=== PATIENT | male | born 1970 | race Caucasian/White ===

== ENCOUNTER 2016-06-25 07:38 | Observation (INO) | payer BC ==
[2016-06-25] MEDS ORDERED: TRANEXAMIC ACID 3,000 MG in NS 50 ML IRR ONE (10:30)
[2016-06-25] MEDS ORDERED: ACETAMINOPHEN 325 MG TAB PO ONE (10:30)
[2016-06-25] MEDS ORDERED: FAMOTIDINE 20 MG TAB PO ONE (10:30)
[2016-06-25] MEDS ORDERED: CEFAZOLIN 2 GM/DEXTR 100 ML IV ONE (10:30)
[2016-06-25] MEDS ORDERED: DEXAMETHASONE 4 MG/ML VIAL IVP ONE (10:30)
[2016-06-25] MEDS ORDERED: CHLORHEXIDINE GLUC HIBICLENS 118 ML BTL TP ONE (10:30)
[2016-06-25] MEDS ORDERED: ROPI/epiNEPH/KETOROLAC JOINT COCKTAIL IU ONE (10:30)
[2016-06-25] MEDS ORDERED: SKIN ADHESIVE (DERMABOND) 1 EACH TP ONE (11:43)
[2016-06-25] MEDS ORDERED: VANCOMYCIN 1 GM VIAL IV ONE (11:43)
[2016-06-25] MEDS ORDERED: LIDOCAINE 1% 5 ML SDV ID PRN (11:50)
[2016-06-25] MEDS ORDERED: LR 1,000 ML IV ONE (11:50)
[2016-06-25] MEDS ORDERED: DEXAMETHASONE 4 MG/ML VIAL ONE (11:56)
[2016-06-25] MEDS ORDERED: FAMOTIDINE 20 MG TAB ONE (11:56)
[2016-06-25] MEDS ORDERED: CEFAZOLIN 2 GM/DEXTROSE/100 ML BAG IV ONE (11:57)
[2016-06-25] MEDS ORDERED: ACETAMINOPHEN 325 MG TAB ONE (11:57)
[2016-06-25] MEDS ORDERED: PROPOFOL/EMULSION 500 MG/50 ML BOTTLE IV ONE (13:03)
[2016-06-25] MEDS ORDERED: MIDAZOLAM 2 MG/2 ML VIAL ONE (13:16)
[2016-06-25] MEDS ORDERED: POLYETHYLENE GLYCOL 3350 17 GM PKT PO PRN (13:42)
[2016-06-25] MEDS ORDERED: ONDANSETRON 4 MG/2 ML VIAL IVP PRN (13:42)
[2016-06-25] MEDS ORDERED: PROMETHAZINE HCL 25 MG SUPPR PR PRN (13:42)
[2016-06-25] MEDS ORDERED: PHARMACY PAIN CONSULT 1 EA MISC PRN (13:42)
[2016-06-25] MEDS ORDERED: BISACODYL 10 MG SUPP PR PRN (13:42)
[2016-06-25] MEDS ORDERED: diphenhydrAMINE 25 MG CAP PO PRN (13:42)
[2016-06-25] MEDS ORDERED: LACTULOSE 20 GM/30 ML UDCUP PO PRN (13:42)
[2016-06-25] MEDS ORDERED: ONDANSETRON DISINTEGRATING 4 MG TAB PO PRN (13:42)
[2016-06-25] MEDS ORDERED: TEMAZEPAM 15 MG CAP PO PRN (13:42)
[2016-06-25] MEDS ORDERED: DIPHENOXYLATE/ATROPINE LOMOTIL 1 TAB PO PRN (13:42)
[2016-06-25] MEDS ORDERED: METOCLOPRAMIDE 10 MG/2 ML VIAL IVP PRN (13:42)
[2016-06-25] MEDS ORDERED: MAGNESIUM HYDROXIDE 30 ML UDCUP PO PRN (13:42)
[2016-06-25] MEDS ORDERED: LR 1,000 ML IV SCH (14:00)
[2016-06-25] MEDS ORDERED: oxyCODONE IR 5 MG TAB ONE (16:01)
--- NOTE | 2016-06-25 16:38 | GOP ---
[f rep st] OPERATIVE REPORT DATE OF OPERATION: 06/25/2016 SURGEON: Nik Ambrose MD SALES ORDER ADMINISTRATOR: Olga Ambrose PA-C. ANESTHESIA: Spinal. PREOPERATIVE DIAGNOSIS: Right knee osteoarthritis. POSTOPERATIVE DIAGNOSIS: Right knee osteoarthritis. PROCEDURE PERFORMED: Right medial compartment partial knee replacement and computer navigation and robotic assistance. FINDINGS: ESTIMATED BLOOD LOSS: 130 mL. INDICATIONS: This is a 45-year-old male with progressive pain of the right knee unresponsive to con servative care. Risks and benefits of surgical intervention were explained in detail. DESCRIPTION OF PROCEDURE: The patient was brought to the operating room and placed on the table in supine position. Spinal anesthesia was induced without difficulty. A pneumatic tourniquet was appl ied about the right proximal thigh and the leg was prepped and draped in sterile fashion. Attention was turned first to the distal aspect of the right femur. At 3 cm proximal to the lateral rise of the femur, 2 percutaneous half pins were placed for fixation of the femoral array. In a similar fas hion, 2 pins were placed anterolateral on the tibia for fixation of the tibial array. External land marking and registration of the hip center was performed without difficulty. After exsanguination by elevation, the tourniquet was inflated to 275 mmHg. Incision was made from the tibial tuberosity to the superior pole of the patella. Dissection was ca rried out through the subcutaneous tissue to the deep fascia using Bovie electrocautery for hemostas is. Medial parapatellar arthrotomy was carried out to the superior pole of the patella. The medial collateral ligament was elevated and the infrapatellar fat pad was resected. Internal femoral and tibial registration was carried out without difficulty and the femoral and tibial checkpoints were p laced and verified for accuracy. Attention was turned to the femur. The foot print for the size 5 femoral component was cut with the 6 mm bur using the [employer] robotic system and verified for accuracy against the CT based plan. The hol e was cut for the femoral post. In a similar fashion, the 6 mm bur was used to cut the foot print fo r the size 5 tibial component using the [employer] system and verified for accuracy against the CT based pl an. Attention was turned to the posterior aspect of the knee and remnants of the medial meniscus were ex cised. The posterior capsule was injected with ropivacaine, epinephrine and Toradol. Trial reducti on was carried out and there was excellent range of motion, alignment and stability using the size 5 femoral component and the size 5 tibial component, 5 x 9 mm polyethylene. All trials were then removed. The joint was thoroughly irrigated and carefully dried. One package of cement and 1 gram of vancomycin were mixed in the vacuum mixer and placed on the fixation surface s of all components. The components were implanted and all excess cement was thoroughly removed. Im plant placement was verified against the CT view plan and found to be excellent. The tourniquet was deflated and all bleeders were coagulated. The wound was thoroughly irrigated an d closed using interrupted sutures of 2-0 Vicryl for the joint capsule. The subcu was closed with 3 -0 Vicryl and the skin with 4-0 Monocryl. Dermabond and Steri-Strips were applied, followed by a co mpressive dressing. The patient was then moved from the operating room to the recovery room in good condition, having tolerated the procedure well. PATHOLOGY: Severe medial compartment osteoarthritis. CASE CLASSIFICATION: Clean. /[id number]/MODL
--- NOTE | 2016-06-25 17:07 | POSTOPPROG ---
Post Op Note Date of Operation: 06/25/16 Surgeon: Froy Joseph Instrument Setter: jose joseph Anesthesiologist: dr. acuna Anesthesia: Spinal, Other (Specify) (adductor) Pre-op Diagnosis: R knee OA Post-op Diagnosis: same Indication: right knee pain due to OA that failed conservative measure Procedure: R medial partial knee arthroplasty Findings: severe medial knee OA Inf/Abcess present in the surg proc area at time of surgery?: No EBL: 50-100
[2016-06-25] MEDS: ACETAMINOPHEN 325 MG TAB PO SCH ×2 (18:35→23:21)
[2016-06-25] MEDS: SENNOSIDES/DOCUSATE SODIUM TAB PO SCH (20:45)
[2016-06-25] MEDS: FAMOTIDINE 20 MG TAB PO SCH (20:45)
[2016-06-25] MEDS: oxyCODONE IR 5 MG TAB PO PRN (20:46)
[2016-06-25] MEDS: CYCLOBENZAPRINE 10 MG TAB PO PRN (20:46)
[2016-06-25] MEDS: ceFAZolin 2 GM/DEXTROSE 100 ML IV SCH (20:47)
[2016-06-26] MEDS: oxyCODONE IR 5 MG TAB PO PRN ×6 (03:20→23:25)
[2016-06-26 04:49] LABS: HEMATOCRIT 40.5 % (40.0-51.0); HEMOGLOBIN 13.9 g/dL (13.7-17.5)
[2016-06-26] MEDS: ACETAMINOPHEN 325 MG TAB PO SCH ×4 (05:05→23:25)
[2016-06-26] MEDS: ceFAZolin 2 GM/DEXTROSE 100 ML IV SCH (05:06)
[2016-06-26] MEDS: RIVAROXABAN 10 MG TAB PO SCH (08:28)
[2016-06-26] MEDS: FAMOTIDINE 20 MG TAB PO SCH ×2 (08:28→20:14)
[2016-06-26] MEDS: SENNOSIDES/DOCUSATE SODIUM TAB PO SCH ×2 (08:28→20:14)
--- NOTE | 2016-06-26 09:52 | SOAPPROG ---
SOAP Progress Note Assessment/Plan: Assessment: is doing well POD 1 s/p R med mpl 1. Pain management: pain is well controlled on oral pain meds 2. Anemia: level is expected initially postop. Asymptomatic, continue to monitor 3. VTE prophylaxis: Recommend xarelto daily. Cont SCDs and TEDs 4. D/c planning: d/c to home tomorrow most likely pending release from PT. Plan: 06/26/16 09:52 Objective: Vital Signs Temp Pulse Resp BP Pulse Ox 36.4 C 46 L 14 128/88 H 94 06/26/16 07:52 06/26/16 07:52 06/26/16 07:52 06/26/16 07:52 06/26/16 07:52 Laboratory Results 06/26/16 04:23 06/25/16 06/26/16 06/27/16 05:59 05:59 05:59 Intake Total 2760 Output Total 980 350 Balance 1780 -350 ICD10 Worksheet Patient Problems: Problems Problem Status Onset Primary localized osteoarthritis of right knee Acute
[2016-06-26] MEDS: CYCLOBENZAPRINE 10 MG TAB PO PRN ×2 (11:11→19:16)
[2016-06-26 23:21] VITALS: TEMP 98.3
[2016-06-27] MEDS: oxyCODONE IR 5 MG TAB PO PRN ×3 (05:03→11:07)
[2016-06-27] MEDS: CYCLOBENZAPRINE 10 MG TAB PO PRN ×2 (05:03→11:08)
[2016-06-27] MEDS: ACETAMINOPHEN 325 MG TAB PO SCH ×2 (05:04→11:07)
[2016-06-27 05:19] LABS: HEMATOCRIT 38.4 % (40.0-51.0); HEMOGLOBIN 13.2 g/dL (13.7-17.5)
[2016-06-27] MEDS: SENNOSIDES/DOCUSATE SODIUM TAB PO SCH (07:54)
[2016-06-27] MEDS: FAMOTIDINE 20 MG TAB PO SCH (07:55)
[2016-06-27] MEDS: RIVAROXABAN 10 MG TAB PO SCH (07:56)
[2016-06-27 08:10] VITALS: BP 149/99; PULSE 60; RESP 14; O2SAT 98
== END 2016-06-27 12:22 | disposition home or self-care (01) ==
LOC: INTOOBSV 07:38 → F3N 07:38
PROVIDERS: ADMIT Orthopaedic Surgery; ATTEND Orthopaedic Surgery
PROC: 8E0YXCZ Robotic Assisted Procedure of Lower Extremity (ICD-10-PCS; principal; 2016-06-25 13:15)
PROC: 8E0YXBG Computer Assisted Procedure of Lower Extremity, With Computerized Tomography (ICD-10-PCS; principal; 2016-06-25 13:15)
PROC: 0SRC0L9 Replacement of Right Knee Joint with Medial Unicondylar Synthetic Substitute, Cemented, Open Approach (ICD-10-PCS; principal; 2016-06-25 13:15)
DX: M17.11 Unilateral primary osteoarthritis, right knee (principal); Z86.718 Personal history of other venous thrombosis and embolism
CPT/HCPCS: 27446; 73560; 97161; 97165; G0378; C1713; J0171; J0690; J1100; J1885; J2250; J2704; J2795; J3370

== ENCOUNTER → 2017-02-17 | Outpatient (CLI) | payer BC | LOC: FIMAGING 09:34 | PROVIDERS: ATTEND Orthopaedic Surgery | DX: Z01.818 Encounter for other preprocedural examination (principal); M17.12 Unilateral primary osteoarthritis, left knee; M25.462 Effusion, left knee; M23.42 Loose body in knee, left knee ==

== ENCOUNTER 2017-02-18 09:15 | Observation (INO) | payer BC ==
[~2017-02-18 09:15] MED LIST: ROPIVACAINE 0.2% 80 MG, EPINEPHrine 0.2 MG, KETOROLAC TROMETHAMINE 30 MG in SYRINGE 0 ML IU ONE; TRANEXAMIC ACID 3,000 MG in NS 50 ML IRR ONE
[2017-02-18] MEDS ORDERED: TRANEXAMIC ACID 3,000 MG/50 ML BAG IRR ONE (09:40)
[2017-02-18] MEDS ORDERED: VANCOMYCIN 1 GM VIAL ONE (09:41)
[2017-02-18] MEDS ORDERED: FAMOTIDINE 20 MG TAB PO ONE (10:57)
[2017-02-18] MEDS ORDERED: ceFAZolin 2 GM/SWFI 2 GM/20 ML SYR IVP ONE (10:57)
[2017-02-18] MEDS ORDERED: ACETAMINOPHEN 325 MG TAB PO ONE (10:57)
[2017-02-18] MEDS ORDERED: DEXAMETHASONE 4 MG/ML VIAL IVP ONE (10:57)
[2017-02-18] MEDS ORDERED: LIDOCAINE 1% 2 ML INJ ID PRN (10:58)
[2017-02-18] MEDS ORDERED: LR 1,000 ML IV ONE (10:58)
--- NOTE | 2017-02-18 11:43 | PDHPUP ---
History & Physical Update H&P update statement: This history and physical update is based on an assessment of the patient which was completed after admission or registration (within 24 hours), but prior to the surgery/procedure. H&P update: H&P reviewed & patient examined, no change in patient's condition since H&P completed
[2017-02-18] MEDS ORDERED: PROPOFOL/EMULSION 500 MG/50 ML BOTTLE IV ONE (12:09)
[2017-02-18] MEDS ORDERED: LIDOCAINE 2% 5 ML SDV ONE (12:11)
--- NOTE | 2017-02-18 12:26 | PDANEPAE ---
ANE Past Medical History - Cardiovascular History Hx Hypertension: No Hx Arrhythmias: No Hx Chest Pain: No Hx Coronary Artery / Peripheral Vascular Disease: No Hx CHF / Valvular Disease: No Hx Palpitations: No - Pulmonary History Hx COPD: No Hx Asthma/Reactive Airway Disease: No Hx Recent Upper Respiratory Infection: No Hx Oxygen in Use at Home: No Hx Sleep Apnea: No Sleep Apnea Screening Result - Last Documented: Negative - Neurologic History Hx Cerebrovascular Accident: No Hx Seizures: No Hx Dementia: No - Endocrine History Hx Diabetes: No Obesity: no - Renal History Hx Renal Disorders: No - Liver History Hx Hepatic Disorders: No - Neurological & Psychiatric Hx Hx Neurological and Psychiatric Disorders: No - Cancer History Hx Cancer: No - Congenital Disorder History Hx Congenital Disorders: No - GI History GERD: no Hx Gastrointestinal Disorders: No - Other Health History Other Health History: none - Chronic Pain History Chronic Pain: Yes (BILATERAL KNEES) - Surgical History Prior Surgeries: BILATERAL KNEE MENISCUS REPAIR MULTIPLE TIMES, MOST RECENT 2010. TONSILLECTOMY @ 35 Y. O. ANE Review of Systems Review of Systems: - Exercise capacity METS (RN): 5 METS ANE Patient History - Allergies Allergies/Adverse Reactions: iodine Allergy (Verified 05/19/16 08:27) Anaphylaxis - Home Medications Home medications: home medication list seen and reviewed Home Medications: Ibuprofen [Motrin (*)] 200 mg PO DAILY PRN 01/08/17 [Last Taken Unknown] - NPO status NPO Since - Liquids (Date): 02/18/17 NPO Since - Liquids (Time): 09:00 NPO Since - Solids (Date): 02/17/17 NPO Since - Solids (Time): 22:00 - Anes Hx Anes Hx: no prior problems - Smoking Hx Smoking Status: Former smoker - Family Anes Hx Family Hx Anesthesia Complications: none ANE Labs/Vital Signs - Vital Signs Blood Pressure: 137/97 Heart Rate: 46 Respiratory Rate: 18 O2 Sat (%): 95 Height: 175.26 cm Weight: 81.647 kg ANE Physical Exam - Airway Neck exam: FROM Mallampati Score: Class 1 Mouth exam: normal dental/mouth exam - Pulmonary Pulmonary: no respiratory distress - Cardiovascular Cardiovascular: regular rate and rhythym - ASA Status ASA Status: I ANE Anesthesia Plan Anesthesia Plan: spinal Regional Anesthesia: single shot NB, adductor canal FNB
[2017-02-18] MEDS ORDERED: MIDAZOLAM 2 MG/2 ML VIAL ONE (13:03)
[2017-02-18] MEDS ORDERED: MIDAZOLAM 2 MG/2 ML VIAL IVP ONE (13:10)
[2017-02-18] MEDS ORDERED: fentaNYL 100 MCG/2 ML INJ ONE (13:45)
[2017-02-18] MEDS ORDERED: POLYETHYLENE GLYCOL 3350 17 GM PKT PO PRN (13:48)
[2017-02-18] MEDS ORDERED: ONDANSETRON 4 MG/2 ML VIAL IVP PRN ×2 (13:48→14:11)
[2017-02-18] MEDS ORDERED: DIPHENOXYLATE/ATROPINE LOMOTIL 1 TAB PO PRN (13:48)
[2017-02-18] MEDS ORDERED: PROMETHAZINE HCL 25 MG SUPPR PR PRN (13:48)
[2017-02-18] MEDS ORDERED: BISACODYL 10 MG SUPP PR PRN (13:48)
[2017-02-18] MEDS ORDERED: ONDANSETRON DISINTEGRATING 4 MG TAB PO PRN (13:48)
[2017-02-18] MEDS ORDERED: LACTULOSE 20 GM/30 ML UDCUP PO PRN (13:48)
[2017-02-18] MEDS ORDERED: METOCLOPRAMIDE 10 MG/2 ML VIAL IVP PRN (13:48)
[2017-02-18] MEDS ORDERED: PROMETHAZINE HCL 25 MG/ML INJ IVP PRN ×2 (13:48→14:11)
[2017-02-18] MEDS ORDERED: TEMAZEPAM 15 MG CAP PO PRN (13:48)
[2017-02-18] MEDS ORDERED: CYCLOBENZAPRINE 10 MG TAB PO PRN (13:48)
[2017-02-18] MEDS ORDERED: diphenhydrAMINE 25 MG CAP PO PRN (13:48)
[2017-02-18] MEDS ORDERED: MAGNESIUM HYDROXIDE 30 ML UDCUP PO PRN (13:48)
[2017-02-18] MEDS ORDERED: ONDANSETRON 4 MG/2 ML VIAL ONE (13:51)
[2017-02-18] MEDS ORDERED: LR 1,000 ML IV SCH (14:00)
[2017-02-18] MEDS ORDERED: DEXAMETHASONE 4 MG/ML VIAL ONE (14:09)
[2017-02-18] MEDS ORDERED: ALBUTEROL 3 ML DEYVIAL IH PRN (14:11)
[2017-02-18] MEDS ORDERED: HYDROCODONE/APAP 5/325 TAB PO PRN (14:11)
[2017-02-18] MEDS ORDERED: HYDROmorphONE/DILAUDID 1 MG/ML INJ IVP PRN (14:11)
[2017-02-18] MEDS ORDERED: LR 500 ML IV PRN (14:11)
[2017-02-18] MEDS ORDERED: OXYCODONE/APAP 5/325 TAB PO PRN (14:11)
[2017-02-18] MEDS ORDERED: NALOXONE HCL 0.4 MG/ML INJ IVP PRN (14:11)
[2017-02-18] MEDS ORDERED: ACETAMINOPHEN 500 MG TAB PO PRN (14:11)
[2017-02-18] MEDS ORDERED: fentaNYL 100 MCG/2 ML INJ IVP PRN (14:11)
--- NOTE | 2017-02-18 14:45 | POSTOPPROG ---
Post Op Note Date of Operation: 02/18/17 Surgeon: Froy Ambrose Wax Bleacher: Olga Ambrose PAc Anesthesia: Spinal Pre-op Diagnosis: L knee DJD Post-op Diagnosis: same Indication: pain Procedure: L med partial with robotic assist Findings: djd knee Inf/Abcess present in the surg proc area at time of surgery?: No EBL: 50-100
--- NOTE | 2017-02-18 14:53 | POSTANESTH ---
Post Anesthetic Evaluation Cardiovascular Status: Normal, Stable Respiratory Status: Normal, Stable Level of Consciousness/Mental Status: Can Participate in Eval Pain Control: Adequate, Prn Tx Ordered Nausea/Vomiting Control: Adequate, Prn Tx Ordered Complications Possibly Related to Anesthesia: None Noted
[2017-02-18] MEDS: oxyCODONE IR 5 MG TAB PO PRN ×3 (16:03→22:31)
[2017-02-18] MEDS: ACETAMINOPHEN 325 MG TAB PO SCH (17:59)
[2017-02-18] MEDS: ASPIRIN EC 81 MG TAB PO SCH (20:10)
[2017-02-18] MEDS: ceFAZolin 2 GM/DEXTROSE 100 ML IV SCH (20:10)
[2017-02-18] MEDS: FAMOTIDINE 20 MG TAB PO SCH (20:10)
[2017-02-18] MEDS: SENNOSIDES/DOCUSATE SODIUM TAB PO SCH (20:10)
[2017-02-19] MEDS: ACETAMINOPHEN 325 MG TAB PO SCH ×2 (00:04→05:04)
[2017-02-19] MEDS: oxyCODONE IR 5 MG TAB PO PRN ×2 (05:04→10:01)
[2017-02-19] MEDS: ceFAZolin 2 GM/DEXTROSE 100 ML IV SCH (05:04)
[2017-02-19 05:22] LABS: HEMATOCRIT 41.8 % (40.0-51.0); HEMOGLOBIN 14.8 g/dL (13.7-17.5)
--- NOTE | 2017-02-19 06:19 | GOP ---
[f rep st] OPERATIVE REPORT DATE OF OPERATION: 02/18/2017 SURGEON: Nik Ambrose MD VERIFYING MACHINE OPERATOR: Olga Ambrose PA-C. ANESTHESIA: Spinal. PREOPERATIVE DIAGNOSIS: Left knee osteoarthritis. POSTOPERATIVE DIAGNOSIS: Left knee osteoarthritis. PROCEDURE PERFORMED: Left medial compartment partial knee replacement with computer navigation and robotic assist. FINDINGS/PATHOLOGY: Severe medial compartment osteoarthritis. INDICATIONS: This is a 46 year old male with progressive pain of the left knee unresponsive to conservative care. Risks and benefits of surgical intervention were explained in detail. DESCRIPTION OF PROCEDURE: The patient was brought to the operating room and placed on the table in supine position. Spinal anesthesia was induced without difficulty. A pneumatic tourniquet was applied about the left proximal thigh and the leg was prepped and draped in sterile fashion. Attention was turned first to the distal aspect of the left femur. At 3 cm proximal to the lateral rise of the femur, 2 percutaneous half pins were placed for fixation of the femoral array. In a similar fashion, 2 pins were placed anterolateral on the tibia for fixation of the tibial array. External land marking and registration of the hip center was performed without difficulty. After exsanguination by elevation, the tourniquet was inflated to 250 mmHg. Incision was made from the tibial tuberosity to the superior pole of the patella. Dissection was carried out through the subcutaneous tissue to the deep fascia using Bov[employer] electrocautery for hemostasis. Medial parapatellar arthrotomy was carried out to the superior pole of the patella. The medial collateral ligament was elevated and the infrapatellar fat pad was resected. Internal femoral and tibial registration was carried out without difficulty and the femoral and tibial checkpoints were placed and verified for accuracy. Attention was turned to the femur. The foot print for the size 5 femoral component was cut with the 6 mm bur using the [employer] robotic system and verified for accuracy against the CT based plan. The hole was cut for the femoral post. In a similar fashion, the 6 mm bur was used to cut the foot print for the size 5 tibial component using the [employer] system and verified for accuracy against the CT based plan. Attention was turned to the posterior aspect of the knee and remnants of the medial meniscus were excised. The posterior capsule was injected with ropivacaine, epinephrine and Toradol. Trial reduction was carried out and there was excellent range of motion, alignment and stability using the size 5 femoral component and the size 5 tibial component, 5 x 8 mm polyethylene. All trials were then removed. The joint was thoroughly irrigated and carefully dried. One package of cement and 1 gram of vancomycin were mixed in the vacuum mixer and placed on the fixation surfaces of all components. The components were implanted and all excess cement was thoroughly removed. Implant placement was verified against the CT view plan and found to be excellent. The tourniquet was deflated and all bleeders were coagulated. The wound was thoroughly irrigated and closed using interrupted sutures of 2-0 Vicryl for the joint capsule. The subcu was closed with 3-0 Vicryl and the skin with 4-0 Monocryl. Dermabond and Steri-Strips were applied, followed by a compressive dressing. The patient was then moved from the operating room to the recovery room in good condition, having tolerated the procedure well. CASE CLASSIFICATION: Clean. /[id number]/MODL MTDD
[2017-02-19 08:10] VITALS: BP 132/63; PULSE 55; RESP 16; TEMP 98.1
[2017-02-19] MEDS: ASPIRIN EC 81 MG TAB PO SCH (08:23)
[2017-02-19] MEDS: SENNOSIDES/DOCUSATE SODIUM TAB PO SCH (08:45)
[2017-02-19] MEDS: FAMOTIDINE 20 MG TAB PO SCH (08:46)
[2017-02-19] MEDS ORDERED: RIVAROXABAN 10 MG TAB PO SCH (09:00)
[2017-02-19 10:51] VITALS: O2SAT 92
--- NOTE | 2017-02-19 12:11 | ASDISCHSUM ---
Discharge Information Plan Status:Home with No Needs Medically Cleared to Leave: Discharge Date:02/19/2017 11:44 AM CM D/C Disposition:Home, Routine, Self-Care ADT D/C Disposition:Home, Routine, Self-Care Projected Discharge Date:02/19/2017 11:44 AM Transportation at D/C: Discharge Delay Reason: Follow-Up Date:02/19/2017 11:44 AM Discharge Slot: Final Diagnosis: Placement Information Patient Contact Information Contact Name:WILBUR Relationship: Address:[address] Work Phone: City:[place] Phone: [facility] [address]/Zip Code:[place] [address] Email: Financial Information Financial Class:HMO and PPO Plans Primary Plan Desc: OUT OF STATE PPO Primary Plan Number:[id number] Secondary Plan Desc: Secondary Plan Number: Assessment Information Intervention Information Intervention Type:*Incorrect Registration Date of Service:02/18/2017 01:54 PM Patient Type:Inpatient Staff Member:CAMILLA Burgos, Olena Hours: Discipline: Severity: Comment:
--- NOTE | 2017-02-19 20:27 | SOAPPROG ---
SOAP Progress Note Assessment/Plan: Assessment: Jez is doing well s/p L med MPL 1) pain management: pain is well controlled on oral pain meds.. c/o right arm pain 2) VTE ppx: continue xarelto 3) d/c to home once PT releases patient Plan: 02/19/17 20:24 Subjective: Jez is doing well this morning, denies SOB, chest pain and n/v. Objective: Vital Signs Temp Pulse Resp BP Pulse Ox 36.7 C 55 L 16 132/63 H 92 02/19/17 08:00 02/19/17 08:00 02/19/17 08:00 02/19/17 08:00 02/19/17 10:18 Laboratory Results 02/19/17 05:05 02/18/17 02/19/17 02/20/17 05:59 05:59 05:59 Intake Total 1815 Output Total 880 Balance 935 LLE: incision dressing is clean and dry, NVI, +pf/df ICD10 Worksheet Patient Problems: Problems Problem Status Onset Primary localized osteoarthritis of left knee Acute Primary localized osteoarthritis of right knee Acute
--- NOTE | 2017-02-23 20:58 | GDS ---
[f rep st] DISCHARGE SUMMARY ADMISSION DIAGNOSIS: Left knee osteoarthritis. DISCHARGE DIAGNOSIS: Left knee osteoarthritis. PROCEDURE: Left partial knee arthroplasty, medial compartment, robot assisted. VTE PROPHYLAXIS: We recommend he resume Xarelto. HOSPITAL COURSE: Patient underwent an elective joint arthroplasty. Patient tolerated the procedure well, no adverse events. Patient passed physical therapy, urinated and had pain well controlled on oral pain meds. The decision to discharge the patient to home was made after one night in the hospital. Patient was placed on xarelto for VTE prophylaxis. PLAN: Please follow up as scheduled, Dr. Ambrose's office. /[id number]/MODL MTDD
== END 2017-02-19 11:44 | disposition home or self-care (01) ==
LOC: INTOOBSV 10:35 → F3N 10:35
PROVIDERS: ADMIT Orthopaedic Surgery; ATTEND Orthopaedic Surgery
PROC: 8E0Y0CZ Robotic Assisted Procedure of Lower Extremity, Open Approach (ICD-10-PCS; principal; 2017-02-18 11:15)
PROC: 0SRU0J9 Replacement of Left Knee Joint, Femoral Surface with Synthetic Substitute, Cemented, Open Approach (ICD-10-PCS; principal; 2017-02-18 11:15)
DX: M17.12 Unilateral primary osteoarthritis, left knee (principal)
CPT/HCPCS: 27446; 73560; 97161; 97165; G0378; S2900; C1713; J0171; J0690; J1100; J1885; J2250; J2405; J2704; J2795; J3010; J3370